=== PATIENT | male | born 1985 | race Caucasian/White ===

== ENCOUNTER 2020-08-15 12:28 | Emergency (ER) | payer SELFPAY ==
[~2020-08-15] VITALS: Ht 167.6 cm; Wt 75.9 kg
[2020-08-15] MEDS ORDERED: GENTAK0.32 OD (13:40)
[2020-08-15 14:05] VITALS: BP 116/82
== END 2020-08-15 14:05 | disposition home or self-care (01) | DRG 115 ==
LOC: ED 12:28
PROC: 08C8XZZ Extirpation of Matter from Right Cornea, External Approach (ICD-10-PCS; principal; 2020-08-15)
DX: T15.01XA Foreign body in cornea, right eye, initial encounter (principal); X58.XXXA Exposure to other specified factors, initial encounter